=== PATIENT | male | born 1995 | race Caucasian/White ===

== ENCOUNTER 2021-06-09 17:06 | Emergency (ER) | payer SELFPAY ==
[~2021-06-09] VITALS: Ht 172.7 cm; Wt 74.8 kg
[2021-06-09] MEDS ORDERED: TRUVADA 200 MG1 EACH PO (18:44)
[2021-06-09] MEDS ORDERED: PROPRANOLOL HCL10 MG PO (18:46)
[2021-06-09] MEDS ORDERED: ALEVE220 MG PO (18:47)
[2021-06-09] MEDS ORDERED: EXCEDRIN MIGRA1 EAC2 PO (18:48)
[2021-06-09] MEDS ORDERED: ONDANSETRON ODT4 MG PO (19:50)
[2021-06-09] MEDS ORDERED: PROAIR HFA8.5 GM INH (19:50)
== END 2021-06-09 20:10 | disposition home or self-care (01) ==
LOC: ED 17:06
DX: U07.1 COVID-19 (principal); Z79.899 Other long term (current) drug therapy
CPT/HCPCS: 80053; 83735; 85025; 96374; 99284-25; C9803; J2405; J7030; U0003